=== PATIENT | male | born 1965 | race Caucasian/White ===

== ENCOUNTER → 2016-12-05 | Outpatient (CLI) | payer BC ==
[~2016-12-05] MED LIST: ACYC-223 PO; CEPH500C PO; HYDR-5688 PO; RAMI10CA PO
[2016-12-05 12:39] LABS: BASO % 0.6 %; BASO ABS # 0.05 K/uL (0-0.2); COMPLETE YES; HEMATOCRIT 49.9 % (42-52); IG% 0.5 %; LYMPH % 28.3 %; LYMPH ABS # 2.29 K/uL (1.2-3.4); MEAN CELL VOLUME 87.2 fL (80-100); MEAN CORPUSCULAR HEMOGLOBIN 29.2 pg (25-34); MEAN CORPUSCULAR HGB CONC 33.5 g/dl (32-36); MEAN PLATELET VOLUME 10.5 fL (7.4-10.4); MONO % 9.8 %; NEUT % 57.8 %; PLATELET COUNT 253 K/uL (130-400); RED BLOOD COUNT 5.72 M/uL (4.7-6.1)
[2016-12-05 12:59] LABS: ESTIMATED AVERAGE GLUCOSE 111 mg/dl; HA1C FLAG Normal (Normal)
[2016-12-05 13:08] LABS: ALT/SGPT 32 U/L (12-78); BLOOD UREA NITROGEN 26 mg/dl (7-18); BUN/CREATININE RATIO 26.1 (10-20); CALCIUM 9.3 mg/dl (8.5-10.1); CARBON DIOXIDE 23 mmol/L (21-32); CHLORIDE 107 mmol/L (98-107); CHOLESTEROL 158 mg/dl (0-200); GLUCOSE 108 mg/dl (70-99); POTASSIUM 3.8 mmol/L (3.5-5.1); SODIUM 139 mmol/L (136-145); TRIGLYCERIDES 151 mg/dl (0-150); VERY LOW DENSITY LIPOPROT CALC 30 mg/dl
[2016-12-05 13:17] LABS: ALB/GLOB RATIO 0.8 (0.9-2); ALKALINE PHOSPHATASE 160 U/L (45-117); AST/SGOT 18 U/L (15-37); HDL CHOLESTEROL 52 mg/dl; LDL CHOLESTEROL CALCULATED 76 mg/dl
== END | disposition home or self-care (01) ==
LOC: C.LABPBG 10:11
PROVIDERS: ATTEND Internal Medicine
DX: R73.03 Prediabetes (principal); R74.8 Abnormal levels of other serum enzymes; Z12.5 Encounter for screening for malignant neoplasm of prostate

== ENCOUNTER 2017-04-13 18:15 | Emergency (ER) | payer BC ==
[~2017-04-13] VITALS: Ht 172.7 cm; Wt 154.9 kg
[2017-04-13 18:28] VITALS: TEMP 36.7; Ht 172.7 cm; Wt 154.9 kg
[2017-04-13] MEDS ORDERED: CEPH500C PO (18:48)
[2017-04-13] MEDS ORDERED: RAMI10CA PO (18:48)
--- NOTE | 2017-04-13 19:15 | EMERGENCY ROOM VISIT NOTE ---
ED Visit Note First contact with patient: 18:38 The patient was seen and examined with Aamir Shaffer PA-C. I agree with the history, physical and findings. Please see the note for disposition and details. The patient has shingles. As he has recent eruption of new lesions antiviral medication to be prescribed. This will hopefully also minimize his post break out pain. Contact precautions discussed. Fluoroscein exam of the eye was negative. I gave my usual and customary discussion regarding this issue.
[2017-04-13] MEDS ORDERED: HYDR-5688 PO (19:50)
[2017-04-13] MEDS ORDERED: ACYC-251 PO (19:50)
[2017-04-13 20:06] VITALS: BP 149/95; PULSE 78; O2SAT 98
--- NOTE | 2017-04-14 01:35 | EMERGENCY ROOM VISIT NOTE ---
ED Visit Note First contact with patient: 18:38 Chief Complaint: I have a skin infection on my forehead. History of Present Illness: Mr. Beckman is a 51-year-old white male who ambulates into the ED accompanied by his complaining of a skin eruption on the right forehead area. Patient reports approximately 10 days ago he started noticing pain in the right preauricular area. Then 7 days ago he noticed some mild erythema in the right frontal area with 3 simple-like lesions within this area of erythema. At that time he noted that the area was tender and painful. He was seen at his PCPs office and this was felt to be cellulitis and he was given a prescription for Keflex. He goes on to report that he feels the rash is spreading and when he awoke 2 days ago he noted redness and swelling around the nasal bones and the upper eyelids. Additionally he does not feel the antibiotics is helping this infection. Associated with his rash she does report he has having a burning and throbbing sensation in the area of the rash. He rates his discomfort 6/10. His pain is nonradiating. His pain worsens with palpation. He has not identified any alleviating factors related to the pain. He has not had a medications for pain prior to arrival at the hospital. With the exception of the new onset of swelling he has not identified any associated symptoms. He denies fevers, chills, sweats, headache, dizziness, lightheadedness, upper respiratory tract symptoms, sore throat, hearing changes, visual changes, difficulty speaking, difficulty swallowing, chest pain, shortness of breath, abdominal pain, nausea/vomiting, decreased appetite. Lastly he did report approximately one month ago his daughter was diagnosed with impetigo and expresses concerns that this could be his infection. Review of Systems: As noted above in history of present illness. 8 body systems were reviewed and found to be negative as noted above. Past Medical History: Hypertension, status post cholecystectomy. Current Medications: Cephalexin, Ramipril. Allergies to Medications: Patient denies. Social History: Patient is currently employed; he feels safe in his home environment; he admits to tobacco and alcohol use. Physical Examination: Vital Signs: Date Time Temp Pulse Resp B/P (MAP) Pulse Ox O2 Delivery O2 Flow Rate FiO2 04/13/17 20:06 78 20 149/95 98 04/13/17 18:28 36.7 81 20 137/76 97 Room Air GENERAL: 51-year-old male in mild distress due to pain, nontoxic-appearing, afebrile and hemodynamically stable. NEUROLOGICAL: Awake, alert and oriented to person, place and time. Answering questions appropriately and following commands. Normal gait. Good hand eye coordination. No focal motor sensory deficits. SKIN: Warm, dry and pink. Forehead and Scalp: Over the dermatomal pattern of the ophthalmic branch of the trigeminal nerve patient has an area of erythema with vesicular lesions starting at the hairline and extending over the temporal bone. Some of the mild erythema crosses the midline but none of the vesicle lesions cross midline. There is also some mild erythema over the medial and lateral aspects of the right upper eyelid and just lateral to the nasal bone. There is no lymphangitis or purulent drainage from the wound. HEENT: Atraumatic and normocephalic. Soft tissue eruption as noted above. PERRLA. EOMI without nystagmus. No foreign bodies were noted under the eyelids are embedded in the cornea. Anterior chamber is clear. Slit lamp examination with staining shows no corneal defects or dendritic lesions. Sclera white and conjunctiva pink. No drainage from naris. Airway is patent. Speech normal. No lymphadenopathy. Trachea midline. No jugular venous distention. THORAX: Lungs sounds are clear to auscultation and equal bilaterally with symmetrical chest wall. ABDOMEN: Flat, soft and nontender. Positive bowel sounds in all quadrants. No guarding, rigidity or organomegaly. ED Course: Patient is assessed as noted above. Patient's medication list was reviewed. Alcaine was used to anesthetize for examination. Patient's case was reviewed with Dr. Hurley; independently assessed the patient we agreed on diagnostic approach, treatment, disposition and plan. Patient was educated about today's findings and instructed on his treatment plan ; he verbalizes understanding and agreement with this plan. Clinical Impression: Herpes zoster. Disposition: Patient discharged home in stable condition accompanied by his ; prior to departure he was reassessed and subjectively reported he was feeling better and rated his discomfort 4/10. Plan: Patient was prescribed acyclovir 800 mg 5 times a day for 10 days. Patient was placed on a sliding pain medications including ibuprofen, acetaminophen and Challenge; his name was checked in the state database and no red flags were noted and he was given appropriate narcotic precautions. Patient was encouraged to follow-up with his PCP for recheck in 3-4 days. Patient was encouraged return ED for worsening redness/swelling, red streaking, puslike drainage, fevers, uncontrolled pain, visual changes or any new/ concerning symptoms.
== END 2017-04-13 20:08 | disposition home or self-care (01) ==
LOC: C.EDB 18:16
DX: B02.9 Zoster without complications (principal); I10 Essential (primary) hypertension; F17.200 Nicotine dependence, unspecified, uncomplicated

== ENCOUNTER → 2017-12-18 | Outpatient (CLI) | payer BC ==
[~2017-12-18] MED LIST changes: -ACYC-223 PO; -CEPH500C PO; -HYDR-5688 PO
[2017-12-18 13:09] LABS: BASO % 0.8 %; BASO ABS # 0.06 K/uL (0-0.2); EOS % 3.5 %; EOS ABS # 0.25 K/uL (0-0.5); HEMATOCRIT 47.4 % (42-52); HEMOGLOBIN 15.9 g/dL (14.0-18.0); IG# 0.06 K/uL (0.00-0.02); LYMPH % 32.2 %; LYMPH ABS # 2.28 K/uL (1.2-3.4); MEAN CELL VOLUME 87.3 fL (80-100); MEAN CORPUSCULAR HEMOGLOBIN 29.3 pg (25-34); MEAN CORPUSCULAR HGB CONC 33.5 g/dl (32-36); MEAN PLATELET VOLUME 10.4 fL (7.4-10.4); MONO % 10.3 %; MONO ABS # 0.73 K/uL (0.11-0.59); NEUT % 52.4 %; NEUT ABS # 3.69 K/uL (1.4-6.5); PLATELET COUNT 240 K/uL (130-400); RED CELL DISTRIBUTION WIDTH CV 13.9 % (11.5-14.5); RED CELL DISTRIBUTION WIDTH SD 44.1 fL (36.4-46.3); WHITE BLOOD COUNT 7.07 K/uL (4.8-10.8)
[2017-12-18 13:37] LABS: HEMOGLOBIN A1C 5.4 % (4.5-5.6)
[2017-12-18 14:13] LABS: ALT/SGPT 22 U/L (12-78); BLOOD UREA NITROGEN 21 mg/dl (7-18); CALCIUM 8.7 mg/dl (8.5-10.1); CARBON DIOXIDE 24 mmol/L (21-32); CHOLESTEROL 137 mg/dl (0-200); CREATININE 1.06 mg/dl (0.60-1.40); GLUCOSE 107 mg/dl (70-99); POTASSIUM 4.2 mmol/L (3.5-5.1); SODIUM 136 mmol/L (136-145)
[2017-12-18 14:23] LABS: ALKALINE PHOSPHATASE 126 U/L (45-117); AST/SGOT 17 U/L (15-37); LDL CHOLESTEROL CALCULATED 76 mg/dl; TOTAL PROTEIN 7.1 gm/dl (6.4-8.2)
== END | disposition home or self-care (01) ==
LOC: C.LABPBG 09:50
PROVIDERS: ATTEND Internal Medicine
DX: Z00.00 Encounter for general adult medical examination without abnormal findings (principal); R53.83 Other fatigue; Z68.43 Body mass index [BMI] 50.0-59.9, adult; R73.03 Prediabetes; Z13.220 Encounter for screening for lipoid disorders; I10 Essential (primary) hypertension; M17.12 Unilateral primary osteoarthritis, left knee; G47.30 Sleep apnea, unspecified; Z86.69 Personal history of other diseases of the nervous system and sense organs